=== PATIENT | female | born 1985 | race Caucasian/White ===

== ENCOUNTER 2018-04-15 11:35 | Emergency (ER) | payer OTHER ==
[~2018-04-15] VITALS: Ht 160 cm; Wt 74.0 kg
[2018-04-15 11:40] VITALS: Ht 160 cm; Wt 74.0 kg
[2018-04-15] MEDS ORDERED: KETOROLAC 30 MG INJ IM STA (12:54)
--- NOTE | 2018-04-15 13:01 | ERD ---
ER Documentation Chief Complaint Chief Complaint fever , cough , runny nose x few days HPI 32 year old female presents to the ED for 4 days of worsening dry cough and body aches. Patient states that she has also had headaches, runny nose, feels tired, weak, and has had one episode of vomiting. She is nauseated, however, denies any fever, dizziness, SOB, CP, dysuria, flank pain, or change in bowel. She has a pmh of anxiety and asthma. She has had ORIF of left ankle. She states she has used nyquil and ibuprofen at home. Denies alcohol and tobacco. Admits to marijuana use. ROS All systems reviewed and are negative except as per history of present illness. Medications Home Meds Active Scripts Ibuprofen* (Motrin*) 600 Mg Tab, 600 MG PO Q6, #30 TAB Prov:BRIANNA OTT PA-C 04/15/18 Ondansetron (Ondansetron Odt) 4 Mg Tab.rapdis, 4 MG PO Q6H PRN for NAUSEA AND/OR VOMITING, #10 TAB Prov:BRIANNA OTT PA-C 04/15/18 Allergies Allergies: Coded Allergies: No Known Allergy (Unverified , 04/15/18) PMhx/Soc Hx Alcohol Use: No Hx Substance Use: Yes (MARIJUANA) Hx Tobacco Use: No Smoking Status: Current some day smoker FmHx Family History: No diabetes Physical Exam Vitals Vital Signs Date Temp Pulse Resp B/P (MAP) Pulse Ox O2 O2 Flow FiO2 Time Delivery Rate 04/15/18 98.3 89 18 134/81 96 11:40 (98) Physical Exam Const: No acute distress Head: Atraumatic Eyes: Normal Conjunctiva ENT: Normal External Ears, Nose and Mouth.unremarkable TMs bilaterally. Neck: Full range of motion. No meningismus. Resp: coarse breath sounds heard over left lung field, no respiratory distress. Cardio: Regular rate and rhythm, no murmurs Abd: Soft, non tender, non distended. Normal bowel sounds. negative murphys. no mcburneys tenderness. negative obturator and psoas signs. No rebound tenderness or guarding Skin: No petechiae or rashes Back: No midline or flank tenderness Ext: No cyanosis, or edema Neur: Awake and alert Psych: Normal Mood and Affect Results 24 hrs Laboratory Tests Test 04/15/18 13:17 POC Beta HCG, Qualitative NEGATIVE Current Medications Medications Dose Sig/Sandra Start Time Status Last (Trade) Ordered Route PRN Stop Time Admin Dose Reason Admin Ketorolac 30 mg ONCE STAT 04/15/18 DC 04/15/18 Tromethamine IM 12:54 13:20 (Toradol) 04/15/18 12:55 Ondansetron 4 mg ONCE STAT 04/15/18 DC 04/15/18 HCl (Zofran ODT 13:51 13:56 Odt) 04/15/18 13:52 Procedures/MDM 32-year-old female resenting to the emergency department complaining of dry cough and body aches. Patient is nontoxic and well-appearing and afebrile. Pat ient was administered Toradol and Zofran in the department with good response. The patient's clinical presentation is very consistent with an acute viral syndrome. The patient does not exhibit any clinical signs or symptoms concerning for serious bacterial infection or systemic illness. Based on history and clinical exam findings the patient does not appear to have evidence of pneumonia, strep pharyngitis, urinary tract infection, bacteremia, sepsis, or meningitis. For these reasons I do not believe it is necessary to obtain laboratory testing or diagnostic imaging. I believe it would be appropriate for symptom control, and close outpatient primary care follow-up. Based on patient's history of present illness and physical examination the decision was made to discharge. There is no evidence of life threatening injuries or illnesses at this time. On re-examination, patient resting in no distress, stable vital signs, reports feeling better and safe for discharge with outpatient follow up with PMD in 1-2 days. Patient given return precautions. Patient's blood pressure was elevated (>120/80) but appears stable without evidence of hypertension emergency or urgency. The patient is to follow-up and pursue outpatient monitoring and therapy with their primary care physician within 1 week and return immediately if they have any new, worsening, or concerning symptoms. Disclaimer: Inadvertent spelling and grammatical errors are likely due to EHR/dictation software use and do not reflect on the overall quality of patient care. Also, please note that the electronic time recorded on this note does not necessarily reflect the actual time of the patient encounter. Departure Diagnosis: Primary Impression: Influenza-like symptoms Condition: Fair Patient Instructions: Influenza (Adult) Additional Instructions: Follow up with your PCP within the next 1-3 days for a repeat evaluation. If you require a referral to a specialist, your Primary Care Provider may be able to provide this for you. In most patient cases, a referral is not required. If you have further questions regarding this matter, please ask your Primary Care Provider. Return the the emergency department immediately if symptoms worsen or change. If you have any questions regarding medications, ask your pharmacist or us before you leave. If any adverse reactions, occur while taking your medications, discontinue the treatment and return to the emergency department immediately. If any new or worsening symptoms, uncontrolled fevers, or other unexplained symptoms occur, return to the emergency department immediately. Take your medications as directed, and complete the entire course of treatment. BRIANNA OTT PA-C Apr 15, 2018 13:01
[2018-04-15] MEDS ORDERED: IBUP-1542 PO (13:02)
[2018-04-15] MEDS ORDERED: ONDA4TAB14 PO (13:02)
[2018-04-15] MEDS ORDERED: ONDANSETRON (ODT) 4 MG TAB ODT STA (13:51)
[2018-04-15 14:30] VITALS: BP 128/69; PULSE 79; RESP 18
== END 2018-04-15 14:30 | disposition home or self-care (01) ==
LOC: FTE 11:35
DX: R50.9 Fever, unspecified (principal); R05 Cough; R09.89 Other specified symptoms and signs involving the circulatory and respiratory systems; R11.2 Nausea with vomiting, unspecified; J45.909 Unspecified asthma, uncomplicated; F17.210 Nicotine dependence, cigarettes, uncomplicated
CPT/HCPCS: 81025; 96372; J1885; Z7502; Z7610